=== PATIENT | female | born 1990 | race Two or more races ===

== ENCOUNTER 2016-11-12 10:30 | Observation (INO) | payer MEDICAID ==
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
== END 2016-11-12 18:50 | disposition home or self-care (01) ==
LOC: FLD 10:30
PROVIDERS: ADMIT Obstetrics & Gynecology; ATTEND Obstetrics & Gynecology
DX: Z04.1 Encounter for examination and observation following transport accident (principal); Z3A.31 31 weeks gestation of pregnancy

== ENCOUNTER 2016-12-27 09:22 | Inpatient (IN) | payer MEDICAID ==
[2016-12-27] MEDS ORDERED: OXYTOCIN/RINGERS LACTATE 1,000 ML IV PRN (11:36)
[2016-12-27] MEDS ORDERED: EPSOM SALT 454 GM TP PRN (11:36)
[2016-12-27] MEDS ORDERED: OLIVE OIL 118 ML BTL MISC PRN (11:36)
[2016-12-27] MEDS ORDERED: LIDOCAINE 1% 300 MG/30 ML SDV SC PRN (11:36)
[2016-12-27] MEDS ORDERED: TERBUTALINE SULFATE 1 MG/ML VIAL IV PRN (11:36)
[2016-12-27] MEDS ORDERED: LR 1,000 ML IV PRN (11:36)
--- NOTE | 2016-12-27 11:43 | GHP ---
[f rep st] PREOP HISTORY AND PHYSICAL DATE OF ADMISSION: 12/27/2016 ADMITTING DIAGNOSIS: Intrauterine at 38-2/7 weeks' gestation, in active labor. Attempted vaginal after section. HISTORY OF PRESENT ILLNESS: The patient is a 26-year-old, 2, para 1-0-0-1, with a last mens trual period of 03/31/2016 and an EDC of 01/08/2017, confirmed by a 7-week ultrasound. She has had good care at [facility] since registration at 16 weeks. 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 Her course is complicated by her history. She had a history of pr eeclampsia in labor with G1, and had secondary to arrest of dilation at 7 cm. Baby was OP . She had a low transverse section. She has been counseled regarding options for delivery of this baby, and she wishes to attempt a vaginal after section. She understands [facility] risks and benefits and signed a consent. She has an umbilical hernia, and will desire repair if a repeat section is performed. She has had a history of pyelonephritis twice in her life. The patie nt presented complaining of contractions that began early in the morning on the . They increased in intensity and severity and are currently now 2 to 3 minutes apart. Her heart tones are 12 0s and reactive, moderate variability, category 1, and cervix is 2 cm, 80%, -2, and she is going to be admitted for labor management and monitoring for vaginal after section. PAST OBSTETRICAL HISTORY: In July of 2015 she had a viable male, 6 pounds 12 ounces; again, C-sect ion secondary to arrest of descent. She also had preeclampsia and chorioamnionitis at that time. PAST MEDICAL HISTORY: Nothing significant. PAST SURGICAL HISTORY: Mayer tooth extraction, and tonsillectomy. ALLERGIES: She has no known drug allergies. MEDICATIONS: Include vitamins and DHA. LABS: She is O positive, antibody negative, RPR nonreactive, rubella immune. Hepatitis negative. HIV negative. Cystic fibrosis, SMA, fragile X negative. Pap normal. Gonorrhea and chlamydia negat amber. AFP negative. Verifi was normal. The 1-hour GTT was 124. She is anemic with a hematocrit of 32; she is on iron for that. GBS was negative. SOCIAL HISTORY: She has a supportive partner named Arden. She lives with him and her son. 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 She denies tobacco, alcohol, and drug use. FAMILY HISTORY: Paternal grandfather had an LA. Mother has chronic hypertension and diabetes, she has anxiety. No other significant family history. SUBJECTIVE: VITAL SIGNS: Today, afebrile. Vital signs are stable. Currently heart tones ar e 120s, reactive, moderate variability. She is shyam every 4 to 5 minutes. PELVIC: Cervix i s 2, 80%, -2, and baby is cephalic. She is intact. ASSESSMENT AND PLAN: A 26-year-old, 2, para 1-0-0-1, at 38-2/7th weeks' gestation with acti ve labor and contractions and attempting a vaginal after section. Patient will be ad mitted, have labs started, an IV started, and she will have expectant management for her labor. For now she will desire an epidural for pain control. /[id number]/MODL
[2016-12-27 12:04] LABS: % IMMATURE GRANULYOCYTES 0.5 % (0.0-1.1); ABSOLUTE IMMATURE GRANULOCYTES 0.05 10^3/uL (0.00-0.10); ADD DIFF? NO; ADD MORPH? NO; ADD SCAN? NO; ATYPICAL LYMPHOCYTE FLAG 0 (0-99); FRAGMENT RBC FLAG 0 (0-99); HEMOGLOBIN 11.7 g/dL (12.6-16.3); LEFT SHIFT FLG 0 (0-99); LIPEMIA HEMOLYSIS FLAG 80 (0-99); MEAN CELL HEMOGLOBIN 26.6 pg (27.9-34.1); MEAN CELL HEMOGLOBIN CONCENTR. 32.5 g/dL (32.4-36.7); MEAN CELL VOLUME 81.8 fL (81.5-99.8); MEAN PLATELET VOLUME 10.2 fL (8.7-11.7); PLATELET CLUMPS FLAG 10 (0-99); PLATELET COUNT 283 10^3/uL (150-400); RED CELL DISTRIBUTION WIDTH 15.5 % (11.5-15.2)
[2016-12-27] MEDS ORDERED: OLIVE OIL 118 ML BTL ONE (12:04)
[2016-12-27] MEDS ORDERED: TERBUTALINE SULFATE 1 MG/ML VIAL ONE (12:04)
[2016-12-27] MEDS ORDERED: LIDOCAINE 1% 300 MG/30 ML SDV ONE (12:04)
[2016-12-27] MEDS ORDERED: OXYTOCIN 10 UNIT/ML VIAL ONE (12:04)
[2016-12-27] MEDS ORDERED: AMMONIA AROMATIC 1 EACH AMP IH ONE (12:04)
[2016-12-27] MEDS ORDERED: MISOPROSTOL 200 MCG TAB ONE (12:05)
[2016-12-27] MEDS ORDERED: GUAIFENESIN/DM 10 ML UDCUP PO PRN (12:13)
[2016-12-27] MEDS ORDERED: CEPACOL LOZENGE PO PRN (12:14)
--- NOTE | 2016-12-27 13:41 | OBPROG ---
OBG Labor Progress Note Assessment/Plan: Assessment: 26 y/o @ 38 2/7 weeks in labor and attempting . Plan: Good cervical progression now. She desires an epidural. status reassuring. 12/27/16 13:39 Subjective: Pt is feeling strong contractions. She just got out of the tub, which was helpful. Objective: 12/27/16 10:50 Patient ABO/Rh O POSITIVE 12/27/16 10:50 - SVE Dilation (cm): 5 Effacement (%): 80 Station: -1 Li Current Contraction Pattern: Regular (Q 3) FHR (bpm): 120 FHR Pattern Variability: Moderate FHR Category: 1 Membranes: Intact Oxytocin Orders Assessment - Pre-Induction/Augmentation Assessment Gestational Age: 38 week(s) and 2 day(s) ICD10 Worksheet Patient Problems: Problems Problem Status Onset Desires (vaginal after ) trial Acute - ICD10 Problem Qualifiers (1) Desires (vaginal after ) trial
[2016-12-27] MEDS ORDERED: fentaNYL 2MCG/ML/BUP 0.1% RTU 100 ML BAG EP ONE (13:47)
[2016-12-27] MEDS ORDERED: PHENYLEPHRINE HCL 100 MCG/ML SYR ONE ×2 (13:48→21:10)
[2016-12-27] MEDS ORDERED: BUPIVACAINE 0.25% 30 ML SDV ONE (13:48)
[2016-12-27] MEDS ORDERED: fentaNYL 100 MCG/2 ML INJ ONE (13:49)
--- NOTE | 2016-12-27 14:49 | PREANESOB ---
Obstetric Pre-Anesthesia Info - General Info Proposed Procedure: Labor and delivery (TOLAC). : 2 Para: 0 WBD: 38 - Info Status: Full Term Monitors: External FHR Baseline (bpm): 115 FHR Pattern: Reassuring - Labor Status Cervical Dilation per last OB SVE: 5 Station per last OB SVE: -1 Indications for Labor Analgesia: Pain Control, Possible Labor Epidural: Proposed Anesthesia ROS: Prior epidural for labor and C Section. Allergies/Adverse Reactions: Allergy/AdvReac Type Severity Reaction Status Date / Time No Known Allergies Allergy Unverified 11/12/16 11:12 Home Medications: Medication Instructions Recorded 64 mg PO BID 12/27/16 Visit Medications: Generic Name Dose Route Start Last Admin Trade Name Freq PRN Reason Stop Dose Admin Guaifenesin/Dextromethorphan 10 ml 12/27/16 12:13 12/27/16 12:53 Robitussin Dm Oral Liquid PO 06/25/17 12:12 10 ml Q4HRS PRN Administration Cough, Moderate Lactated Ringer's 1,000 mls @ 0 mls/hr 12/27/16 11:36 Lr IV 06/25/17 11:35 PRN PRN SEE PROTOCOL CONDITIONS Protocol Per Protocol Oxytocin/Lactated Ringer's 1,000 mls @ 150 mls/hr 12/27/16 11:36 Pitocin 20 Units/Lr (Premix) IV PRN PRN Post- bleeding Ibuprofen 600 mg 12/27/16 11:36 Motrin PO 06/25/17 11:35 Q6HRS PRN post , inflammation Lidocaine HCl 300 mg 12/27/16 11:36 Lidocaine Hcl 1% SC 06/25/17 11:35 ONCE PRN episiotomy Magnesium Sulfate 454 gm 12/27/16 11:36 Epsom Salt TP 06/25/17 11:35 Q1H PRN perineal discomfort Crete Oil 118 ml 12/27/16 11:36 Sweet Oil MISC 06/25/17 11:35 ONCE PRN preneal massage Terbutaline Sulfate 0.25 mg 12/27/16 11:36 Brethine IV 06/25/17 11:35 ONCE PRN Tachysystole Throat Lozenges 1 ea 12/27/16 12:14 12/27/16 12:53 Cepacol Lozenge PO 06/25/17 12:13 1 ea PRN PRN Administration Sore Throat Discontinued Medications Generic Name Dose Route Start Last Admin Trade Name Adry PRN Reason Stop Dose Admin Ammonia (Aromatic Spirit) Confirm 12/27/16 12:04 Ammonia Aromatic Administered 12/27/16 12:05 Dose 1 each IH .STK-MED ONE Bupivacaine HCl Confirm 12/27/16 13:48 Sensorcaine 0.25% Sdv Administered 12/27/16 13:49 Dose 30 ml .ROUTE .STK-MED ONE Ephedrine Sulfate Confirm 12/27/16 12:04 Ephedrine Sulfate Administered 12/27/16 12:05 Dose 50 mg .ROUTE .STK-MED ONE Fentanyl Confirm 12/27/16 13:49 Sublimaze Administered 12/27/16 13:50 Dose 100 mcg .ROUTE .STK-MED ONE Fentanyl/Bupivacaine HCl Confirm 12/27/16 13:47 Fentanyl/Bupivacaine/Ns 2 Mcg/Ml 0.1% (Premix Administered 12/27/16 13:48 Dose 100 ml EP .STK-MED ONE Lidocaine HCl Confirm 12/27/16 12:04 Lidocaine Hcl 1% Administered 12/27/16 12:05 Dose 300 mg .ROUTE .STK-MED ONE Misoprostol Confirm 12/27/16 12:05 Cytotec Administered 12/27/16 12:06 Dose 1,000 mcg .ROUTE .STK-MED ONE Crete Oil Confirm 12/27/16 12:04 Sweet Oil Administered 12/27/16 12:05 Dose 118 ml .ROUTE .STK-MED ONE Oxytocin Confirm 12/27/16 12:04 Pitocin Administered 12/27/16 12:05 Dose 40 unit .ROUTE .STK-MED ONE Phenylephrine HCl Confirm 12/27/16 13:48 Neosynephrine Administered 12/27/16 13:49 Dose 1,000 mcg .ROUTE .STK-MED ONE Terbutaline Sulfate Confirm 12/27/16 12:04 Brethine Administered 12/27/16 12:05 Dose 1 mg .ROUTE .STK-MED ONE - Anesthesia History Response to Local Anesthetics: Normal Anesthesia & Operative History: Prob w/Prior Anesthesia (Epidural had to be replaced.) Family Anesthesia History: Negative - Social History Substance Use/Abuse: Denies - Focused Exam Blood Pressure: 121/87 Heart Rate: 118 Respiratory Rate: 18 Height/Weight (Nursing): Height 154.94 cm Weight 65.317 kg Physical Exam: Within normal limits. ASA Status: II Labs: 12/27/16 10:50 Patient ABO/Rh O POSITIVE 12/27/16 10:50 - Plan Anesthetic Plan: CSE Consent Signed and on Chart: Yes Patient/Guardian Understands and Agrees to Plan: Yes Urgent/Emergent Case: Myla saunders completed preop but documented later for safe timely pt care
[2016-12-27] MEDS ORDERED: ONDANSETRON 4 MG/2 ML VIAL IVP PRN ×2 (14:51→22:10)
[2016-12-27] MEDS ORDERED: PHENYLEPHRINE HCL 100 MCG/ML SYR IVP PRN (14:51)
--- NOTE | 2016-12-27 14:51 | POSTANESTH ---
Post Anesthetic Evaluation Cardiovascular Status: Normal, Stable Respiratory Status: Normal, Stable, Similar to Pre-op Cond. Level of Consciousness/Mental Status: Can Participate in Eval, Alert and Oriented Pain Control: Adequate, Prn Tx Ordered Nausea/Vomiting Control: Adequate, Prn Tx Ordered Complications Possibly Related to Anesthesia: None Noted
[2016-12-27] MEDS ORDERED: fentaNYL 2MCG/ML/BUP 0.1% RTU 100 ML EP SCH (15:00)
[2016-12-27] MEDS ORDERED: LR 500 ML IV SCH (15:00)
--- NOTE | 2016-12-27 19:50 | OBPROG ---
OBG Labor Progress Note Assessment/Plan: Assessment: 26 y/o @ 38 2/7 weeks in labor and attempting . Plan: Cervical change has stalled now. She has weaker contractions and inadequate mU. Anesthesia is giving an epidural bolus now and we will supplement with a small dose of pitocin to try to induce cervical change to become adequate. I am not sure if the baby will tolerate stronger and closer contractions and she is aware she may need a c section. 12/27/16 13:39 12/27/16 19:50 Subjective: Pt is feeling painful contractions again, she has tried to push her bolus button without effect. Objective: 12/27/16 10:50 Patient ABO/Rh O POSITIVE 12/27/16 10:50 Temp Pulse Resp BP Pulse Ox 118 H 18 121/87 H 12/27/16 14:50 12/27/16 14:50 12/27/16 14:50 - SVE Dilation (cm): 7 Effacement (%): 90 Station: 0 Li Current Contraction Pattern: Regular (Q 2-3) FHR (bpm): 110 FHR Pattern Variability: Moderate FHR Category: 2 (episodes of early, and variable deceleration with some prolonged decelerations to 70's) Membranes: Intact Amniotic Fluid Color: Clear Oxytocin Orders Assessment - Pre-Induction/Augmentation Assessment Gestational Age: 38 week(s) and 2 day(s) ICD10 Worksheet Patient Problems: Problems Problem Status Onset Desires (vaginal after ) trial Acute - ICD10 Problem Qualifiers (1) Desires (vaginal after ) trial
[2016-12-27] MEDS ORDERED: LR 500 ML IV PRN (19:53)
[2016-12-27] MEDS ORDERED: OXYTOCIN/RINGERS LACTATE 500 ML IV SCH (20:00)
[2016-12-27] MEDS ORDERED: LIDO/EPI 2% **for epidural** 20 ML SDV ONE (20:30)
[2016-12-27] MEDS ORDERED: CEFAZOLIN 2 GM/DEXTROSE/100 ML BAG IV ONE (20:30)
[2016-12-27] MEDS ORDERED: ceFAZolin 2 GM/DEXTROSE 100 ML IV ONE (21:00)
[2016-12-27] MEDS ORDERED: METHYLERGONOVINE MAL 0.2 MG/ML INJ ONE (21:08)
[2016-12-27] MEDS ORDERED: morphINE PF 5 MG/10 ML INJ ONE (21:08)
[2016-12-27] MEDS ORDERED: DEXAMETHASONE 4 MG/ML VIAL ONE ×2 (21:09→21:47)
[2016-12-27] MEDS ORDERED: ONDANSETRON 4 MG/2 ML VIAL ONE ×2 (21:10→21:47)
[2016-12-27] MEDS ORDERED: OXYTOCIN 100 UNITS/10 ML VIAL ONE (21:10)
[2016-12-27 21:32] LABS: BASE EXCESS CORD -7.3 mEq/L (-13.6--3.2); PH ARTERIAL CORD BLOOD 7.22 (7.10-7.37)
[2016-12-27 21:38] LABS: PH VENOUS CORD BLOOD 7.3 (7.20-7.42)
[2016-12-27] MEDS ORDERED: NALOXONE HCL 0.4 MG/ML INJ IVP PRN (22:10)
--- NOTE | 2016-12-27 22:13 | POSTANESTH ---
Post Anesthetic Evaluation Cardiovascular Status: Normal, Stable, Similar to Pre-Op Cond Respiratory Status: Normal, Stable, Similar to Pre-op Cond. Level of Consciousness/Mental Status: Can Participate in Eval, Alert and Oriented (Epidural dosed for C Section, to OR, BP treated, comfortable for surgery, to PACU, no pain or nausea.) Pain Control: Adequate, Prn Tx Ordered Nausea/Vomiting Control: Adequate, Prn Tx Ordered Complications Possibly Related to Anesthesia: None Noted
[2016-12-27] MEDS ORDERED: PROMETHAZINE HCL 25 MG/ML INJ IVP PRN (22:40)
[2016-12-27] MEDS ORDERED: DOCUSATE SODIUM 100 MG CAP PO PRN (22:40)
[2016-12-27] MEDS ORDERED: ACETAMINOPHEN 325 MG TAB PO PRN (22:40)
[2016-12-27] MEDS ORDERED: HYDROCODONE/APAP 5/325 TAB PO PRN (22:40)
[2016-12-27] MEDS ORDERED: LACTULOSE 20 GM/30 ML UDCUP PO PRN (22:42)
[2016-12-27] MEDS ORDERED: BISACODYL 10 MG SUPP PR PRN (22:42)
[2016-12-27] MEDS ORDERED: POLYETHYLENE GLYCOL 3350 17 GM PKT PO PRN (22:42)
[2016-12-27] MEDS ORDERED: MAGNESIUM HYDROXIDE 30 ML UDCUP PO PRN (22:42)
--- NOTE | 2016-12-27 22:47 | OBDEL ---
Info Type: Repeat GBS+: No Indications for Delivery: Spontaneous Labor Vaginal Delivery - Labor and Delivery Onset of Contractions Date: 12/27/16 Onset of Contractions Time: 01:00 Cord Gases: Cord Gases Cord Blood PCO2 54.0 mmHg (37-60) 12/27/16 21:14 Cord Base Excess -7.3 mEq/L (-13.6--3.2) 12/27/16 21:14 Cord ABG pH 7.22 (7.10-7.37) 12/27/16 21:14 Cord VBG pH 7.30 (7.20-7.42) 12/27/16 21:14 Operative Report - Delivery Pre-op Diagnoses: IUP @ 38 weeks, arrest of dilation, intolerance to labor , failed Post-op Diagnoses: same Nulliparous Prior to Delivery: No Presentation at Delivery: Vertex Procedure: Unscheduled, Low Transverse Surgeon: Tiffanie Pagan Exceptional Needs Teacher: Urmila Tsang Anesthesiologist: Hitesh Hickey Automatic Coil Machine Operator/TURBINE MECHANIC: Leelee Daniels L&Hi Analgesia/Anesthesia Type: Epidural, Spinal Complications: Nucal Cord, Other (Specify) Specimen(s)/Path: Placenta IV Fluid (ml): 2,000 EBL: 800 Cord Gases: Cord Gases Cord Blood PCO2 54.0 mmHg (37-60) 12/27/16 21:14 Cord Base Excess -7.3 mEq/L (-13.6--3.2) 12/27/16 21:14 Cord ABG pH 7.22 (7.10-7.37) 12/27/16 21:14 Cord VBG pH 7.30 (7.20-7.42) 12/27/16 21:14 Thorp Data Li Delivery Date: 12/27/16 Delivery Time: 21:04 YUNIER: 01/08/17 Gestational Age: 38 week(s) and 2 day(s) Sex of Infant: Female Weight (gm): 0 g Score (1 Min): 8 Score (5 Min): 8 ICD10 Worksheet Patient Problems: Problems Problem Status Onset Delivered by section Acute Desires (vaginal after ) trial Acute - ICD10 Problem Qualifiers (1) Desires (vaginal after ) trial (2) Delivered by section
--- NOTE | 2016-12-27 22:56 | GOP ---
[f rep st] OPERATIVE REPORT DATE OF OPERATION: 12/27/2016 SURGEON: Tiffanie Pagan MD LITIGATION SERVICES MANAGER: Urmila Tsang MD ANESTHESIA: Epidural anesthesia. ANESTHESIOLOGIST: Hitesh Hickey MD PREOPERATIVE DIAGNOSIS: Intrauterine at 38-2/7 weeks gestation with spontaneous labor, ar rest of dilation, intolerance to labor, failed vaginal after section. POSTOPERATIVE DIAGNOSIS: Intrauterine at 38-2/7 weeks gestation with spontaneous labor, a rrest of dilation, intolerance to labor, failed vaginal after section. PROCEDURE PERFORMED: Repeat low transverse section, FINDINGS: 1. Viable female. 2. 's of 8 and 8. 3. Weight was not performed yet. ESTIMATED BLOOD LOSS: 800 cc. DESCRIPTION OF PROCEDURE: The patient was taken to the operating room, where she was given an epidu ral anesthesia and dosed to be adequate. She was prepped and draped in the dorsal supine position w ith a leftward tilt, and a Duval catheter had previously been placed in her bladder. After adequate anesthesia was assured and a WHO time-out was performed, a transverse skin incision was made with a scalpel in the previous scar. The incision was carried down to the underlying layer of f ascia with the knife. The fascia was incised midline. Fascial incision was extended laterally with Altamirano scissors. The superior aspect of the fascial incision was grasped with Frankie clamps, elevate d, and the rectus muscles were dissected off sharply. Inferior aspect of the fascial incision was g rasped with Frankie clamps, elevated, and the rectus muscles were dissected off sharply. Rectus musc les were in the midline. The peritoneal incision was extended superiorly and inferiorly w ith good visualization of the bladder. Bladder blade was inserted. Vesicouterine peritoneum was gr asped with pickups and entered sharply with Metzenbaum scissors. Incision was extended laterally an d bladder flap was created digitally. The uterus was incised with a knife. There was clear amnioti c fluid upon entry to the uterine cavity. The infant was in direct OP presentation and had a nuchal cord. She was delivered atraumatically. Cord was clamped and cut. Cord blood gas as well as cord bloods were sent. The placenta was removed manually. The uterus was exteriorized, cleared of all clots and debris. The uterine incision was repaired with 0 Vicryl in a running, locked fashion. Se cond imbricating layer was performed with 0 Vicryl and good hemostasis was assured. The uterus was returned to the abdomen. Gutters were cleared of all clots and debris. There were small areas of b leeding along the bladder flap which were cauterized and sewn with 3-0 Vicryl and Micheal was placed in the bladder flap for hemostasis. The rectus muscles were approximated with 2-0 Vicryl in inverte d mattress fashion. The fascia was closed with #1 Vicryl in a running fashion. Subcutaneous layer was closed with 2-0 Vicryl and the skin was closed with 4-0 Monocryl. The patient tolerated the pro cedure well. Sponge, lap, needle, and instrument counts were correct x3. Patient went to the [facility] room in good condition. INDICATIONS FOR PROCEDURE: The patient is a 26-year-old, 2, para 1-0-0-1, with a last menst rual period of 04/03/2016 and an EDC of 01/08/2017, confirmed by a 7-week ultrasound. She presented in active labor with contractions on the morning of the . Originally, she was 2 cm, 75%, -2. S he received an epidural, had spontaneous rupture of membranes, progressed to 7 cm. Baby had a decre ase in baseline to the 110s to 100s, and had episodes of prolonged decelerations to the 60s and 70s with spontaneous recovery with position changes and resuscitative measures. She began having variab le decelerations with a decrease in variability at the sherry, and she had progressed to 7, and had b een stalled at 7 cm for greater than 4 hours. We discussed augmentation of her labor with Pitocin. However, I did not feel that the baby would tolerate stronger labor contractions, and felt that the would be the safest option for the baby, and patient was in agreement. She was consented for the procedure. She understood the risks and benefits, the risks including bleeding, infection, damage to the uterus including possible risk of perforation, damage to other organs if perforation were to occur, injury, hemorrhage requiring a blood transfusion, hysterectomy, or . She understood these risks and benefits, agreed to proceed. URINE OUTPUT: 300 cc. FLUIDS REPLACED: 2000 cc. /[id number]/MODL
[2016-12-27] MEDS: KETOROLAC 30 MG/1 ML SDV IVP PRN (23:46)
[2016-12-28] MEDS: KETOROLAC 30 MG/1 ML SDV IVP PRN ×3 (05:40→18:02)
--- NOTE | 2016-12-28 08:54 | OBPP ---
Progress Note Assessment/Plan: Assessment: well. Nipples intact pain well managed o2 1l per NC ff@u scant rubra lochia incision remains covered no bleeding noted to bandage bs hypo active denies passing gas as of yet wyatt remains in place draining QS chely urine anemic Plan:expectant management po day 1, respiratory consult, iron to begin for anemia 12/28/16 08:51 Subjective: doing well denies difficulties. through the night nauseous phenergan added to the iv bag working well for the nausea. Objective: 12/28/16 05:45 Patient ABO/Rh O POSITIVE 12/27/16 10:50 Temp Pulse Resp BP Pulse Ox 36.2 C 86 18 109/73 100 12/28/16 01:30 12/28/16 05:30 12/28/16 03:30 12/28/16 03:30 12/28/16 05:30 Uterine Position/Fundal Height: At Umbilicus Uterine Tone: Firm Physical Exam - Physical Exam General Appearance: WD/WN, alert, no apparent distress Respiratory: chest non-tender, lungs clear, normal breath sounds Cardiac/Chest: regular rate, rhythm Abdomen: normal bowel sounds Extremities: normal range of motion, Autumn's sign (negative bilaterally) DTR- Lower Extremities: Knee (R): 1+, Knee (L): 1+ (no clonus) Skin: normal color, warm/dry Neuro/Psych: no motor/sensory deficits, alert, normal mood/affect, oriented x 3
[2016-12-28] MEDS: SENNOSIDES/DOCUSATE SODIUM TAB PO SCH ×2 (10:03→22:42)
[2016-12-28] MEDS: IRON POLYSAC/IRON HEME 28 MG TAB PO SCH ×2 (10:03→22:42)
[2016-12-28] MEDS: SIMETHICONE 80 MG TAB CHEW PO PRN ×2 (10:03→18:10)
[2016-12-28] MEDS: IBUPROFEN 600 MG TAB PO PRN (23:28)
[2016-12-29] MEDS: IBUPROFEN 600 MG TAB PO PRN ×3 (05:02→18:29)
[2016-12-29] MEDS: IRON POLYSAC/IRON HEME 28 MG TAB PO SCH ×2 (09:03→20:52)
[2016-12-29] MEDS: SENNOSIDES/DOCUSATE SODIUM TAB PO SCH ×2 (10:41→19:36)
--- NOTE | 2016-12-29 12:45 | OBPP ---
Progress Note Assessment/Plan: Assessment: 26 y/o POD #2 s/p Rpt LTCS doing well. Plan: support, continue po pain meds prn. Pt will likely desire d/c home tomorrow. 12/27/16 13:39 12/27/16 19:50 12/29/16 12:44 Subjective: Pt doing very well today. She has min pain, soreness controlled by Ibuprofen. She is ambulating, voiding and took a shower this am without difficulty. Baby is doing well and she is breast feeding well with good latch and min soreness. Objective: 12/28/16 05:45 Patient ABO/Rh O POSITIVE 12/27/16 10:50 Temp Pulse Resp BP Pulse Ox 36.2 C 92 16 97/51 L 96 12/29/16 09:13 12/29/16 09:13 12/29/16 09:13 12/29/16 09:13 12/29/16 09:13 Uterine Position/Fundal Height: Umbilicus -2 Uterine Tone: Firm Physical Exam - Physical Exam General Appearance: WD/WN, alert, no apparent distress Neck: non-tender, full range of motion, supple Respiratory: chest non-tender, lungs clear, normal breath sounds Cardiac/Chest: regular rate, rhythm Abdomen: normal bowel sounds, incision (c/d/i) Extremities: swelling (no), Autumn's sign (neg)
[2016-12-29] MEDS ORDERED: diphenhydrAMINE 25 MG CAP PO ONE ×3 (19:00→21:34)
[2016-12-30] MEDS: IBUPROFEN 600 MG TAB PO PRN ×2 (00:37→06:41)
[2016-12-30] MEDS ORDERED: diphenhydrAMINE 25 MG CAP PO ONE (07:49)
[2016-12-30 08:23] VITALS: BP 126/69; PULSE 79; RESP 16; TEMP 98.2; O2SAT 97
[2016-12-30] MEDS ORDERED: diphenhydrAMINE 25 MG CAP PO PRN (08:25)
[2016-12-30] MEDS ORDERED: ACETAMINOPHEN/CODEINE 300/30MG TAB PO PRN (08:26)
--- NOTE | 2016-12-30 08:31 | OBPP ---
Progress Note Assessment/Plan: Assessment: 1) s/p RCS secondary to arrest of dilation, intolerance to labor, and faield POD # 3 - pt is stable 2) Anemia - pt is asymptomatic 3) Hives - ? allergy to Motrin Plan: Continue routine pp care Will discontinue Motrin and start Tylenol 3 If doing well with no further hives, plan for d/c home this afternoon Instructions reviewed with pt Rx given for Tylenol 3 Cont PNV and iron Pelvic rest RCT in 2,4 and 6 weeks for pp visit 12/30/16 08:28 Subjective: Pt seen and examined. Doing well with no complaints. Pain is well controlled- only taking Motrin. Pt is OOB, dina reg diet, voiding and BM x 1. Mod lochia. Denies any f/c/n/v/CP or SOB. Hives noted around eyes and back of neck-resolved now. BF without difficulty-thinks milk came in. Would like to go home today. Objective: 12/28/16 05:45 Patient ABO/Rh O POSITIVE 12/27/16 10:50 Temp Pulse Resp BP Pulse Ox 36.8 C 79 16 126/69 H 97 12/30/16 08:15 12/30/16 08:15 12/30/16 08:15 12/30/16 08:15 12/30/16 08:15 Uterine Position/Fundal Height: Umbilicus -2 Uterine Tone: Firm Physical Exam - Physical Exam General Appearance: WD/WN, alert, no apparent distress Respiratory: lungs clear, normal breath sounds Cardiac/Chest: regular rate, rhythm Abdomen: normal bowel sounds, non-tender (appropriately tender), soft, flatus (+ ), incision (C/D/I with steri strips) Extremities: non-tender, normal inspection Skin: normal color, warm/dry Neuro/Psych: alert, normal mood/affect, oriented x 3
--- NOTE | 2016-12-30 08:40 | OBGCSDC ---
General Delivery Information - General Info : 2 Para: 1 Delivery Physician/CNM: Tiffanie Pagan [employer]: Urmila Tsang Admission Date: 12/27/16 Labs: Patient ABO/Rh O POSITIVE 12/27/16 10:50 Hct 30.8 % (38.0-47.0) L 12/28/16 05:45 Vaginal - Diagnosis Presentation at Delivery: Vertex - Operations/Procedures L&D Analgesia/Anesthesia Type: Epidural, Spinal - Delivery Number of Prior Sections: 1 Indications for Prior Section: Arrest of Dilation Indications for Current Section: Arrest of Dilation, Non-reas. Status, Other (Specify) (failed ) Type: Repeat Surgical Procedures: Low Transverse Intra-op Complications: None (800 cc) L&D Analgesia/Anesthesia Type: Epidural, Spinal - Hospital Course Antepartum: Previous c/s secondary to arrest of dilation; h/o preeclampsia; h/o pyelo x 2 Intrapartum: Active labor, progressed to 7 cm. intolerance to labor and direct OP. Failed . : Pain well controlled-only taking Motrin. +Hives noted, discontinued Motrin and started Tylenol #3. Moderate lochia. Voiding without difficulty. BM x 1. BF well. Data Li Delivery Date: 12/27/16 Delivery Time: 21:04 YUNIER: 01/08/17 Gestational Age: 38 week(s) and 5 day(s) Sex of : Female [place] Weight (gm): 0 g Score (1 Min): 8 Score (5 Min): 8 Discharge Information - Discharge Information Discharge Medications: Iron, Tylenol #3, Vitamins Condition: Good Instruction/Follow Up: Two Weeks Discharge Physician/CNM: Yolanda Garcia
[2016-12-30] MEDS: IRON POLYSAC/IRON HEME 28 MG TAB PO SCH (10:23)
[2016-12-30] MEDS: SENNOSIDES/DOCUSATE SODIUM TAB PO SCH (12:01)
== END 2016-12-30 15:00 | disposition home or self-care (01) | DRG 766 ==
LOC: FLD 09:22 → OBSVTOIN 09:22 → FLD 22:57 → FOB 12-28 00:23
PROVIDERS: ADMIT Obstetrics & Gynecology; ATTEND Obstetrics & Gynecology
PROC: 3E033VJ Introduction of Other Hormone into Peripheral Vein, Percutaneous Approach (ICD-10-PCS; principal; 2016-12-27)
PROC: 10D00Z1 Extraction of Products of Conception, Low, Open Approach (ICD-10-PCS; principal; 2016-12-27)
DX: O76 Abnormality in fetal heart rate and rhythm complicating labor and delivery (principal); O62.0 Primary inadequate contractions; O61.0 Failed medical induction of labor; O99.73 Diseases of the skin and subcutaneous tissue complicating the puerperium; T39.315A Adverse effect of propionic acid derivatives, initial encounter; L50.0 Allergic urticaria; O9A.23 Injury, poisoning and certain other consequences of external causes complicating the puerperium; O34.211 Maternal care for low transverse scar from previous cesarean delivery; O99.613 Diseases of the digestive system complicating pregnancy, third trimester; O69.9XX0 Labor and delivery complicated by cord complication, unspecified, not applicable or unspecified; O90.81 Anemia of the puerperium; K42.9 Umbilical hernia without obstruction or gangrene; Z3A.38 38 weeks gestation of pregnancy; Z37.0 Single live birth
CPT/HCPCS: J0690; J1100; J1885; J2210; J2274; J2370; J2405; J2550; J2590; J3010; J3105